=== PATIENT | female | born 1950 | race Caucasian/White ===

== ENCOUNTER 2017-03-11 10:16 | Outpatient (CLI) | payer OTHER ==
--- NOTE | 2017-03-11 20:24 | XRAY Preliminary Report ---
Exam: XR Hip w/Pelvis 2-3V LT IMPRESSION: 1. Mild osteitis pubis symphysis. 2. Normal left hip. [facility] SITE ID: [id number]
--- NOTE | 2017-03-11 20:41 | XRAY Report ---
EXAM: LEFT HIP AND PELVIS RADIOGRAPHY EXAM DATE: 03/11/2017 10:40 AM. HISTORY: Left hip pain for 3 months. No precipitating injury. COMPARISONS: None. TECHNIQUE: 1 view of the pelvis and 1 view of the hip. FINDINGS: Bones: Normal. No fracture or bone lesion. Joints: Normal hips bilaterally. Mild osseous pubis symphysis. Mild degenerative changes right sacroiliac joint consisting of mild uniform subcortical sclerosis on both sides. Soft Tissues: Normal. No soft tissue swelling. IMPRESSION: 1. Mild osteitis pubis symphysis. 2. Normal left hip. [facility] Referring Provider Line: [phone] SITE ID: [id number]
== END 2017-03-11 10:17 | disposition home or self-care (01) ==
LOC: DI 10:16
PROVIDERS: ATTEND Internal Medicine
DX: M86.8X8 Other osteomyelitis, other site (principal)

== ENCOUNTER 2017-04-15 11:07 | Outpatient (CLI) | payer OTHER ==
--- NOTE | 2017-04-15 12:26 | XRAY Report ---
THREE VIEW RIGHT SHOULDER: 04/15/2017 CLINICAL INDICATION: Pain. FINDINGS: AP, oblique, and scapular Y views of the right shoulder demonstrate mild osteoarthritis of the glenohumeral and acromioclavicular joints. There is no evidence of acute fracture or dislocation . No radiopaque foreign body is seen in the soft tissues. IMPRESSION: MILD OSTEOARTHRITIS. JOB #: [id number] EXT JOB #:[id number]
== END 2017-04-15 11:08 | disposition home or self-care (01) ==
LOC: DI 11:07
PROVIDERS: ATTEND Nurse Practitioner Primary Care
DX: M19.011 Primary osteoarthritis, right shoulder (principal)

== ENCOUNTER 2017-04-25 08:54 | Outpatient (CLI) | payer OTHER ==
[2017-04-25 12:36] LABS: BASOPHILS % (AUTO) 0.6 %; EOSINOPHILS # (AUTO) 0.3 10^3/uL (0.0-0.7); HCT - HEMATOCRIT 38.1 % (37.0-47.0); HGB - HEMOGLOBIN 12.9 g/dL (12.0-16.0); LYMPHOCYTES # (AUTO) 2.4 10^3/uL (1.5-3.5); LYMPHOCYTES % (AUTO) 34.9 %; MEAN CORPUSCULAR HEMOGLOBIN 30.3 pg (27.0-31.0); MEAN CORPUSCULAR HGB CONC 33.8 g/dL (32.0-36.0); MEAN CORPUSCULAR VOLUME 89.5 fL (81.0-99.0); MEAN PLATELET VOLUME 8.3 fL (7.9-10.8); MONOCYTES # (AUTO) 0.4 10^3/uL (0.0-1.0); MONOCYTES % (AUTO) 6.3 %; NEUTROPHILS # (AUTO) 3.8 10^3/uL (1.5-6.6); NEUTROPHILS % (AUTO) 54.2 %; RED BLOOD COUNT 4.25 10^6/uL (4.20-5.40); RED CELL DISTRIBUTION WIDTH 12.8 % (12.0-15.0)
[2017-04-25 12:57] LABS: ALBUMIN/GLOBULIN RATIO 1.3 (1.0-2.2); BILIRUBIN,TOTAL 0.8 mg/dL (0.2-1.0); CALCIUM 8.8 mg/dL (8.5-10.3); CREATININE 0.7 mg/dL (0.4-1.0); TOTAL PROTEIN 7.2 g/dL (6.7-8.2)
[2017-04-25 13:02] LABS: HEMOGLOBIN A1C 0.49 g/dL
== END 2017-04-25 08:55 | disposition home or self-care (01) ==
LOC: LAB.R 08:54
PROVIDERS: ATTEND Nurse Practitioner Primary Care
DX: Z00.00 Encounter for general adult medical examination without abnormal findings (principal); R73.9 Hyperglycemia, unspecified
CPT/HCPCS: 80053; 83036; 85025

== ENCOUNTER 2017-05-25 08:43 | Outpatient (CLI) | payer OTHER ==
--- NOTE | 2017-05-25 10:38 | DEXA Report ---
DEXA SCAN: 05/25/2017 CLINICAL INDICATION: Postmenopausal. TECHNIQUE: Dual energy x-ray absorptiometry (DXA) was performed on a [employer] system. Regions measured are the AP spine, femoral neck, and, if needed, forearm. COMPARISON: None. In accordance with the International Society for Clinical Densitometry (ISCD) guidelines, data from previous exams may be reanalyzed using current recommendations and techniques. This is done to allow a more accurate basis for comparison with the current study. FINDINGS: The data for the lumbar spine is as follows: REGION BMD (g/cm/cm) T-SCORE Z-SCORE L1 1.034 -0.8 0.7 L2 1.343 1.2 2.7 L3 1.400 1.7 3.2 L4 1.319 1.0 2.5 TOTAL 1.274 0.8 2.3 NOTE: All evaluable vertebrae are used for classification. The data for the hip is as follows: REGION BMD (g/cm/cm) T-SCORE Z-SCORE Neck 0.813 -1.6 -0.2 TOTAL 0.908 -0.8 0.4 NOTE: The femoral neck or total proximal femur, whichever is lowest, is used for classification. IMPRESSION: THE WHO CLASSIFICATION BASED ON THE INTERNATIONAL REFERENCE STANDARD IS OSTEOPENIA (REFERENCE LEFT FEMORAL NECK). THE FRACTURE RISK IS INCREASED. RECOMMENDATION: Patients with diagnosis of osteoporosis or osteopenia should have regular bone mineral density assessment. For those eligible for Medicare, routine testing is allowed once every 2 years. Testing frequency can be increased for patients who have rapidly progressing disease or for those who are receiving medical therapy to restore bone mass. COMMENT: World Health Organization (WHO) definitions for osteoporosis and osteopenia: NORMAL BMD: T-score at -1.0 or higher, fracture risk is low. OSTEOPENIA BMD: T-score between -1.0 and -2.5, fracture risk is increased. OSTEOPOROSIS BMD: T-score at -2.5 or lower, fracture risk high. National Osteoporosis Foundation recommends: 1. Obtain adequate dietary calcium (at least 1200 mg per day) and vitamin D (400 -800 international units per day). 2. Participate, as appropriate, in regular weightbearing and muscle- strengthening exercise. 3. Avoid tobacco use and reduce alcohol and caffeine intake. 4. For more detailed information see the website at www.NOF.org. MTDD
== END 2017-05-25 08:44 | disposition home or self-care (01) ==
LOC: DI 08:43
PROVIDERS: ATTEND Nurse Practitioner Primary Care
DX: Z78.0 Asymptomatic menopausal state (principal); Z00.00 Encounter for general adult medical examination without abnormal findings; M85.80 Other specified disorders of bone density and structure, unspecified site
CPT/HCPCS: 77080

== ENCOUNTER 2018-08-07 09:01 | Outpatient (CLI) | payer OTHER ==
[2018-08-07 22:56] LABS: BASOPHILS # (AUTO) 0.1 10^3/uL (0.0-0.1); BASOPHILS % (AUTO) 1.3 %; EOSINOPHILS # (AUTO) 0.2 10^3/uL (0.0-0.7); EOSINOPHILS % (AUTO) 3.2 %; HGB - HEMOGLOBIN 12.3 g/dL (12.0-16.0); LYMPHOCYTES # (AUTO) 2.5 10^3/uL (1.5-3.5); LYMPHOCYTES % (AUTO) 37.3 %; MEAN CORPUSCULAR HGB CONC 34.8 g/dL (32.0-36.0); MEAN PLATELET VOLUME 8.9 fL (7.9-10.8); MONOCYTES # (AUTO) 0.4 10^3/uL (0.0-1.0); MONOCYTES % (AUTO) 6.1 %; NEUTROPHILS # (AUTO) 3.5 10^3/uL (1.5-6.6); NEUTROPHILS % (AUTO) 52.1 %; PLT - PLATELET COUNT 265 10^3/uL (130-450); RED BLOOD COUNT 3.83 10^6/uL (4.20-5.40); RED CELL DISTRIBUTION WIDTH 13.1 % (12.0-15.0); WHITE BLOOD COUNT 6.8 x10^3/uL (4.8-10.8)
[2018-08-07 23:06] LABS: ALBUMIN 4.2 g/dL (3.2-5.5); ALBUMIN/GLOBULIN RATIO 1.7 (1.0-2.2); BILIRUBIN,TOTAL 0.8 mg/dL (0.2-1.0); CALCIUM 8.6 mg/dL (8.5-10.3); CREATININE 0.6 mg/dL (0.4-1.0); TOTAL PROTEIN 6.7 g/dL (6.7-8.2)
== END 2018-08-07 09:02 | disposition home or self-care (01) ==
LOC: LAB.R 09:01
PROVIDERS: ATTEND Nurse Practitioner Primary Care
DX: Z00.00 Encounter for general adult medical examination without abnormal findings (principal); R73.01 Impaired fasting glucose
CPT/HCPCS: 80053; 85025

== ENCOUNTER 2018-08-28 15:17 | Outpatient (CLI) | payer OTHER ==
[2018-08-28 18:10] LABS: BASOPHILS # (AUTO) 0.1 10^3/uL (0.0-0.1); BASOPHILS % (AUTO) 0.8 %; EOSINOPHILS # (AUTO) 0.2 10^3/uL (0.0-0.7); EOSINOPHILS % (AUTO) 2.7 %; HGB - HEMOGLOBIN 11.9 g/dL (12.0-16.0); LYMPHOCYTES # (AUTO) 2.5 10^3/uL (1.5-3.5); LYMPHOCYTES % (AUTO) 34.9 %; MEAN CORPUSCULAR HEMOGLOBIN 31.8 pg (27.0-31.0); MEAN CORPUSCULAR HGB CONC 34.6 g/dL (32.0-36.0); MEAN CORPUSCULAR VOLUME 91.9 fL (81.0-99.0); MEAN PLATELET VOLUME 8.5 fL (7.9-10.8); MEAN RETIC VALUE 109.6; MONOCYTES # (AUTO) 0.4 10^3/uL (0.0-1.0); MONOCYTES % (AUTO) 5.7 %; NEUTROPHILS % (AUTO) 55.9 %; PLT - PLATELET COUNT 273 10^3/uL (130-450); RED BLOOD COUNT 3.73 10^6/uL (4.20-5.40); RED CELL DISTRIBUTION WIDTH 12.5 % (12.0-15.0); WHITE BLOOD COUNT 7.2 x10^3/uL (4.8-10.8)
[2018-08-28 18:41] LABS: FERRITIN 40.2 ng/mL (11.0-306.8)
== END 2018-08-28 15:18 | disposition home or self-care (01) ==
LOC: LAB.R 15:17
PROVIDERS: ATTEND Nurse Practitioner Primary Care
DX: D64.9 Anemia, unspecified (principal)
CPT/HCPCS: 82607; 82728; 83010; 85025; 85044; 86880

== ENCOUNTER 2018-09-02 16:34 | Outpatient (CLI) | payer OTHER ==
--- NOTE | 2018-09-03 00:05 | Ultrasound Report ---
Reason: C/O PELVIC PAIN, ABDOMINAL BLOATING Procedure Date: 09/02/2018 Accession Number: [id number] / [id number] Procedure: US - Pelvic w/Transvaginal CPT Code: FULL RESULT: EXAM: PELVIC ULTRASOUND EXAM DATE: 09/02/2018 05:48 PM. CLINICAL HISTORY: C/O PELVIC PAIN, ABDOMINAL BLOATING. COMPARISON: None. TECHNIQUE: Realtime transabdominal pelvic scan performed to identify the uterus and adnexa and as an overview of other pelvic structures, followed by transvaginal scan to provide greater detail of the uterus and adnexa, with static image documentation. FINDINGS: Uterus: 8.1 x 3.9 x 2.6 cm, volume 43 cc. Anteverted position. Normal overall size and echotexture. Masses: There is a 0.7 x 0.6 x 0.5 cm posterior intramural leiomyoma. Endometrium: 4 mm. Trace fluid is present in the endometrial canal. Cervix: Unremarkable. Right Ovary: 3.1 x 2.1 x 1.3 cm, volume 4 cc. Normal echotexture. Left Ovary: 2.6 x 1.4 x 1.3 cm, volume 3 cc. Normal echotexture. Free Fluid: None. Other: None. IMPRESSION: 7 mm posterior intramural leiomyoma. [facility]
== END 2018-09-02 16:35 | disposition home or self-care (01) ==
LOC: DI 16:34
PROVIDERS: ATTEND Physician Assistant Surgical
DX: D25.1 Intramural leiomyoma of uterus (principal)
CPT/HCPCS: 76830; 76856

== ENCOUNTER 2018-10-02 08:00 | Outpatient (CLI) | payer OTHER ==
[2018-10-02 11:52] LABS: BASOPHILS % (AUTO) 0.7 %; EOSINOPHILS # (AUTO) 0.3 10^3/uL (0.0-0.7); HGB - HEMOGLOBIN 12.7 g/dL (12.0-16.0); LYMPHOCYTES # (AUTO) 2.6 10^3/uL (1.5-3.5); LYMPHOCYTES % (AUTO) 36.4 %; MEAN CORPUSCULAR HEMOGLOBIN 31.5 pg (27.0-31.0); MEAN CORPUSCULAR HGB CONC 34.5 g/dL (32.0-36.0); MEAN CORPUSCULAR VOLUME 91.3 fL (81.0-99.0); MEAN PLATELET VOLUME 8.2 fL (7.9-10.8); MONOCYTES # (AUTO) 0.5 10^3/uL (0.0-1.0); MONOCYTES % (AUTO) 6.8 %; NEUTROPHILS # (AUTO) 3.7 10^3/uL (1.5-6.6); NEUTROPHILS % (AUTO) 52.1 %; PLT - PLATELET COUNT 264 10^3/uL (130-450); RED BLOOD COUNT 4.03 10^6/uL (4.20-5.40); RED CELL DISTRIBUTION WIDTH 12.7 % (12.0-15.0); WHITE BLOOD COUNT 7.1 x10^3/uL (4.8-10.8)
[2018-10-02 12:05] LABS: BILIRUBIN,URINE NEGATIVE (NEGATIVE); GLUCOSE, URINE (UA) NEGATIVE (NEGATIVE); KETONES,URINE (UA) NEGATIVE (NEGATIVE); LEUKOCYTE ESTERASE, URINE NEGATIVE (NEGATIVE); NITRITE,URINE NEGATIVE (NEGATIVE); OCCULT BLOOD,URINE NEGATIVE (NEGATIVE); PH,URINE 5.5 PH (5.0-7.5); PROTEIN,URINE NEGATIVE (NEGATIVE); UROBILINOGEN,URINE 0.2 (NORMAL) E.U./dL (NORMAL)
[2018-10-02 12:07] LABS: CLARITY,URINE CLEAR (CLEAR)
[2018-10-02 12:10] LABS: BACTERIA,URINE None Seen /HPF (None Seen); RBC,URINE None Seen /HPF (0-5); SQUAMOUS EPITHELIAL CELL,UR NONE SEEN (<= Few)
== END 2018-10-02 23:59 | disposition home or self-care (01) ==
LOC: LAB.R 08:00
PROVIDERS: ATTEND Nurse Practitioner Primary Care
DX: D64.9 Anemia, unspecified (principal)
CPT/HCPCS: 81001; 85025; 87086

== ENCOUNTER 2019-02-15 21:35 | Emergency (ER) | payer MEDICARE, OTHER ==
--- NOTE | 2019-02-15 21:46 | ED Physician Documentation ---
History of Present Illness - Stated complaint Stated Complaint: FACE TINGLE/HEADACHE - Chief complaint Chief Complaint: Neuro - History obtained from History obtained from: Patient - History of Present Illness Timing: How many hours ago (1) Pain level max: 4 Pain level now: 1 Improved by: no apparent ameliorating factors, but has steadily improved since onset and nearly resolved by the time of this evaluation Worsened by: no apparent inciting nor exacerbating factors - Additonal information Additional information: while watching TV at home 1 hour ago, patient had sudden onset left-sided headache, predominantly retro-orbital, associated with "tingly" (per patient) paresthesias left infraorbit. Denies visual changes, denies h/o similar symptoms Review of Systems Constitutional: reports: Reviewed and negative Eyes: reports: Reviewed and negative Cardiac: reports: Reviewed and negative Respiratory: reports: Reviewed and negative GI: reports: Reviewed and negative Skin: reports: Reviewed and negative Musculoskeletal: reports: Reviewed and negative Neurologic: reports: Numbness (left facial paresthesias), Headache. denies: Generalized weakness, Focal weakness PD PAST MEDICAL HISTORY - Past Medical History Past Medical History: No - Past Surgical History Past Surgical History: Yes Ortho: Rotator cuff repair, Carpal Tunnel surgery - Present Medications Home Medications: Ambulatory Orders Medication Instructions Recorded Confirmed No Known Home Medications 06/09/16 06/09/16 - Allergies Allergies/Adverse Reactions: Allergies Allergy/AdvReac Type Severity Reaction Status Date / Time cefazolin sodium * Allergy Unknown Verified 06/09/16 15:43 [From Ancef] cephalexin monohydrate * Allergy Unknown Verified 06/09/16 15:43 [From Keflex] Sulfa (Sulfonamide Allergy Unknown Verified 06/09/16 15:43 Antibiotics) - Living Situation Living Arrangement: reports: At home - Social History Does the pt smoke?: No Smoking Status: Never smoker Does the pt drink ETOH?: Yes Does the pt have substance abuse?: No PD ED PE NORMAL - Vitals Vital signs reviewed: Yes - General General: Alert and oriented X 3, No acute distress, Well developed/nourished - HEENT HEENT: PERRL, EOMI, Moist mucous membranes - Neck Neck: Supple, no meningeal sign - Cardiac Cardiac: RRR, No murmur - Respiratory Respiratory: No respiratory distress, Clear bilaterally - Derm Derm: Normal color, Warm and dry, No rash - Neuro Neuro: Alert and oriented X 3, electric lineman 2-12 intact, No motor deficit, No sensory deficit, Normal speech Eye Opening: Spontaneous Motor: Obeys Commands Verbal: Oriented GCS Score: 15 Results - Vitals Vitals: Vital Signs - 24 hr 02/15/19 02/15/19 02/15/19 21:42 21:56 23:23 Temperature 36.6 C Heart Rate 80 95 80 Respiratory 16 17 20 Rate Blood Pressure 145/74 H 144/82 H 106/61 O2 Saturation 100 100 98 02/15/19 23:52 Temperature 36.5 C Heart Rate 82 Respiratory 16 Rate Blood Pressure 118/62 O2 Saturation 99 Oxygen O2 Source Room air - EKG (time done) No standard instances Rate: Rate (enter#) (79) Rhythm: NSR, LAE [place]: LAD Intervals: Normal CO QRS: LVH Ischemia: Normal ST segments, Q waves (V1-V3) - Labs Labs: Laboratory Tests 02/15/19 02/15/19 22:00 22:00 WBC 10.2 RBC 4.17 L Hgb 12.7 Hct 38.2 MCV 91.5 MCH 30.5 MCHC 33.4 RDW 12.7 Plt Count 292 MPV 8.1 Neut # (Auto) 5.0 Lymph # (Auto) 4.3 H [place] # (Auto) 0.6 Eos # (Auto) 0.3 Baso # (Auto) 0.0 Absolute Nucleated RBC 0.01 Nucleated RBC % 0.1 Sodium 140 Potassium 4.0 Chloride 100 L Carbon Dioxide 29 Anion Gap 11.0 BUN 20 Creatinine 0.9 Estimated GFR (MDRD) 62 L Glucose 103 H Calcium 9.0 Phosphorus 4.5 Magnesium 2.5 - Rads (name of study) CT head Radiology: Prelim report reviewed, See rad report PD MEDICAL DECISION MAKING - ED course Complexity details: reviewed results, re-evaluated patient, considered differential, d/w patient Departure - Departure Disposition: 01 Home, Self Care Clinical Impression: Headache, Paresthesia Condition: Good Instructions: ED Cephalgia Unspecified, ED Paraesthesias Follow-Up: Sachin Witt MD [Primary Care Provider] - Discharge Date/Time: 02/16/19 00:00 NIHSS - Level of Consciousness Level of consciousness: (0) Alert, Keenly responsive LOC Questions: (0) Answers both Q's correct LOC Commands: (0) Performs both correctly - Gaze Best Gaze: (0) Normal - Visual Visual: (0) No loss - Facial Palsy Facial Palsy: (0) Normal, symmetrical movement - Motor Arms (both separate) Motor Arm (right): (0) No drift Motor Arm (left): (0) No drift - Motor Legs (both separate) Motor Leg (right): (0) No drift Motor Leg (left): (0) No drift - Limb Ataxia Limb Ataxia: (0) Absent - Sensory Sensory: (0) Normal - Best Language Best Language: (0) No aphasia - Dysarthria Dysarthria: (0) Normal - Extinction and Inattention (formally neg Extinction and inattention: (0) No abnormality - Total Score/Results Total Score/Result: 0
[2019-02-15 22:16] LABS: BASOPHILS % (AUTO) 0.5 %; EOSINOPHILS # (AUTO) 0.3 10^3/uL (0.0-0.7); EOSINOPHILS % (AUTO) 2.6 %; HGB - HEMOGLOBIN 12.7 g/dL (12.0-16.0); LYMPHOCYTES # (AUTO) 4.3 10^3/uL (1.5-3.5); LYMPHOCYTES % (AUTO) 41.5 %; MEAN CORPUSCULAR HEMOGLOBIN 30.5 pg (27.0-31.0); MEAN CORPUSCULAR HGB CONC 33.4 g/dL (32.0-36.0); MEAN CORPUSCULAR VOLUME 91.5 fL (81.0-99.0); MEAN PLATELET VOLUME 8.1 fL (7.9-10.8); MONOCYTES # (AUTO) 0.6 10^3/uL (0.0-1.0); MONOCYTES % (AUTO) 6.1 %; NEUTROPHILS % (AUTO) 49.3 %; PLT - PLATELET COUNT 292 10^3/uL (130-450); RED BLOOD COUNT 4.17 10^6/uL (4.20-5.40); RED CELL DISTRIBUTION WIDTH 12.7 % (12.0-15.0); WHITE BLOOD COUNT 10.2 x10^3/uL (4.8-10.8)
[2019-02-15 22:29] LABS: CREATININE 0.9 mg/dL (0.4-1.0); MAGNESIUM 2.5 mg/dL (1.7-2.8); PHOSPHORUS 4.5 mg/dL (2.5-4.6)
--- NOTE | 2019-02-15 22:52 | CT Report ---
Reason: headache, paresthesias Procedure Date: 02/15/2019 Accession Number: [id number] / [id number] Procedure: CT - HEAD WO CPT Code: FULL RESULT: EXAM: CT HEAD EXAM DATE: 02/15/2019 10:29 PM. CLINICAL HISTORY: Headache and paresthesia COMPARISON: None. TECHNIQUE: Multiaxial CT images were obtained from the foramen magnum to the vertex. Reformats: Sagittal and coronal. IV contrast: None. In accordance with CT protocol optimization, one or more of the following dose reduction techniques were utilized for this exam: automated exposure control, adjustment of mA and/or KV based on patient size, or use of iterative reconstructive technique. FINDINGS: Parenchyma: No intraparenchymal hemorrhage. No evidence of mass, midline shift, or CT findings of infarction. Bates-white differentiation is distinct. Extraaxial Spaces: Normal for age. No subdural or epidural collections identified. Ventricles: Normal in size and position. Sinuses and Orbits: Imaged paranasal sinuses, orbits, and mastoids show no significant abnormality. Bones: No evidence of fracture or calvarial defect. Other: None. IMPRESSION: No acute intracranial process. [facility]
[2019-02-15 23:59] VITALS: BP 118/62
== END 2019-02-16 | disposition home or self-care (01) ==
LOC: ED 21:35
DX: R51 Headache (principal); R20.2 Paresthesia of skin; I51.7 Cardiomegaly
CPT/HCPCS: 36415; 70450; 80048; 83735; 84100; 85025; 93005; 99283; 99284

== ENCOUNTER 2019-05-28 12:52 | Outpatient (CLI) | payer MEDICARE, OTHER ==
--- NOTE | 2019-06-01 08:15 | Mammography Report ---
Reason: SCREENING MAMMO Procedure Date: 05/28/2019 Accession Number: [id number] / [id number] Procedure: DIPTI - Screening Mammo w/Kvng CPT Code: FULL RESULT: EXAM: Screening Mammo w/Kvng DATE: 05/28/2019 1:45 PM CLINICAL HISTORY: Screening encounter. History of late childbearing. TECHNIQUE: (B) - Bilateral CC, laterally exaggerated CC, MLO views were obtained. COMPARISON: None PARENCHYMAL PATTERN: (A) - The breast(s) demonstrate(s) scattered fibroglandular densities. FINDINGS: A right medial breast posterior isodense well-circumscribed nodule approximately 7 cm from the nipple at the 3:00 position demonstrates morphology including an apparent lucent central fatty hilum of a typically benign intramammary lymph node. A second right breast 4:00 partially obscured isodense lobulated nodule demonstrates an appearance most suggestive of a cluster of microcysts. In absence of a previous comparison, further clarification by right breast ultrasound in hopes of definitive characterization is recommended. In the left lateral breast at the 2:00 position resides a partially obscured isodense nodule which is well-circumscribed on 3-D image 23 and MLO, appearance most suggestive of a cyst. Again, further clarification by ultrasound in hopes of definitive characterization is recommended in absence of comparison imaging demonstrating stability. There are no suspicious masses, calcifications, or areas of distortion. IMPRESSION: Incomplete examination. BI-RADS category 0. RECOMMENDATION: (ADDUS) - Targeted ultrasound recommended. Right and left breast. The additional ultrasound examination could potentially be obviated if prior comparison imaging becomes available for review. BI-RADS CATEGORY: (0) - Incomplete Examination - need additional evaluation. STANDARD QUALIFYING STATEMENTS: 1. This examination was not reviewed with the aid of Computer-Aided Detection (CAD). 2. A negative or benign imaging report should not preclude biopsy if clinically suspicious findings are present. 3. Dense breasts may obscure an underlying neoplasm. 4. This examination was reviewed with the aid of 3D breast imaging (tomosynthesis).
== END 2019-05-28 12:53 | disposition home or self-care (01) ==
LOC: DI 12:52
DX: Z12.31 Encounter for screening mammogram for malignant neoplasm of breast (principal); R92.8 Other abnormal and inconclusive findings on diagnostic imaging of breast
CPT/HCPCS: 77063; 77067

== ENCOUNTER 2019-06-06 11:48 | Outpatient (CLI) | payer MEDICARE, OTHER ==
--- NOTE | 2019-06-06 13:53 | Ultrasound Report ---
Reason: ABNORMAL MAMMOGRAM Procedure Date: 06/06/2019 Accession Number: [id number] / [id number] Procedure: US - Breast Unilateral Limited CPT Code: FULL RESULT: EXAM: Breast Unilateral Limited DATE: 06/06/2019 1:23 PM CLINICAL HISTORY: Finding recalled from recent screening exams. TECHNIQUE: (R) - Right real-time ultrasound was performed by both the technologist and the radiologist. Capacity Planner images were obtained. COMPARISON: Mammography of 05/28/2019 through 09/17/2013. FINDINGS: Right breast: Targeted ultrasound in the posterior 3:00 breast demonstrates a 6 mm anechoic cyst corresponding to a chronic stable mammographic finding. Mammographic finding of concern is located at 4:00 2 cm from the nipple and corresponds to a 7 mm avascular clustered microcysts. No solid masses or suspicious findings. IMPRESSION: Benign findings. BI-RADS category 2. Results discussed with patient at time of exam. RECOMMENDATION: (ANNUAL) - Recommend routine annual screening mammography. BI-RADS CATEGORY: (2) - Benign Findings.
== END 2019-06-06 11:49 | disposition home or self-care (01) ==
LOC: DI 11:48
PROVIDERS: ATTEND Nurse Practitioner
DX: N60.11 Diffuse cystic mastopathy of right breast (principal)
CPT/HCPCS: 76642

== ENCOUNTER 2019-09-21 08:19 | Outpatient (CLI) | payer MEDICARE, OTHER ==
[2019-09-21 09:08] LABS: CHOLESTEROL 195 mg/dL; HDL CHOLESTEROL 64 mg/dL; LDL CHOLESTEROL,CALCULATED 109 mg/dL; LDL/HDL RATIO 1.7 (<4.4); VLDL CHOLESTEROL 22 mg/dL
== END 2019-09-21 08:20 | disposition home or self-care (01) ==
LOC: LAB 08:19
PROVIDERS: ATTEND Nurse Practitioner
DX: Z00.00 Encounter for general adult medical examination without abnormal findings (principal); E66.3 Overweight; R53.83 Other fatigue; R73.01 Impaired fasting glucose
CPT/HCPCS: 36415; 80061; 83721; 84443

== ENCOUNTER 2019-10-11 17:12 | Outpatient (CLI) | payer MEDICARE, OTHER ==
--- NOTE | 2019-10-16 03:35 | Ultrasound Report ---
Reason: CAROTID BRUIT Procedure Date: 10/11/2019 Accession Number: [id number] / [id number] Procedure: US - Carotid Doppler Complete CPT Code: Final Report FULL RESULT: EXAM: BILATERAL CAROTID AND VERTEBRAL ARTERY DUPLEX DOPPLER ULTRASOUND: EXAM DATE: 10/11/2019 09:19 PM CLINICAL HISTORY: Carotid bruit. COMPARISON: None. TECHNIQUE: Grayscale imaging, color Doppler, and duplex spectral Doppler were used to evaluate the carotid and vertebral arteries bilaterally. Static images were obtained. FINDINGS: Mild irregular calcified plaque is seen in the carotid bifurcations and internal carotid arteries bilaterally. Normal antegrade flow is present in bilateral vertebral arteries. VELOCITIES (cm/sec): Right CCA mid: PSV 83 cm/sec CCA dist: PSV 63 cm/sec ICA prox: PSV 67 cm/sec, EDV 27 cm/sec ICA mid: PSV 108 cm/sec, EDV 25 cm/sec ICA dist: PSV 67 cm/sec, EDV 25 cm/sec ECA: PSV 60 cm/sec Vert: PSV 72 cm/sec ICA/CCA: 1.3 Left CCA mid: PSV 78 cm/sec CCA dist: PSV 79 cm/sec ICA prox: PSV 79 cm/sec, EDV 27 cm/sec ICA mid: PSV 78 cm/sec, EDV 25 cm/sec ICA dist: PSV 119 cm/sec, EDV 36 cm/sec ECA: PSV 84 cm/sec Vert: PSV 78 cm/sec ICA/CCA: 1.5 ICA diameter stenosis: Right: <50% by velocity and <70% by NASCET criteria. Left: <50% by velocity and <70% by NASCET criteria. IMPRESSION: 1. Mild bilateral carotid artery plaquing. 2. In the right carotid artery there are no elevated carotid artery velocities to suggest hemodynamically significant stenosis. 3. In the left carotid artery there are no elevated carotid artery velocities to suggest hemodynamically significant stenosis. 4. Normal antegrade flow is present in bilateral vertebral arteries. General Recommendations: Stenosis =50% ICA - Follow-up ultrasound 6-12 months Stenosis <50% ICA - High Risk Patient with plaque - Follow-up ultrasound 1-2 years Normal Study but High Risk Patient - Follow-up ultrasound 3-5 years Management recommendations and diagnostic criteria are based on current IAC endorsed standards in Carotid Artery Stenosis: Grayscale and Doppler Ultrasound Diagnosis. Validated velocity measurements with angiographic measurements and velocity criteria are extrapolated from diameter data as defined by the Society of Radiologists in Ultrasound Consensus Conference Radiology 2003; 229;340-346. [facility]
== END 2019-10-11 17:13 | disposition home or self-care (01) ==
LOC: DI 17:12
PROVIDERS: ATTEND Nurse Practitioner
DX: R09.89 Other specified symptoms and signs involving the circulatory and respiratory systems (principal)
CPT/HCPCS: 93880

== ENCOUNTER 2019-10-11 17:19 | Outpatient (CLI) | payer MEDICARE, OTHER | END 2019-10-11 17:20 | disposition home or self-care (01) | LOC: DI 17:19 | PROVIDERS: ATTEND Nurse Practitioner | DX: Z53.9 Procedure and treatment not carried out, unspecified reason (principal) ==

== ENCOUNTER 2020-03-18 07:00 | Outpatient (CLI) | payer MEDICARE, OTHER | END 2020-03-18 23:59 | disposition home or self-care (01) | LOC: LAB.R 07:00 | PROVIDERS: ATTEND Nurse Practitioner Family | DX: R52 Pain, unspecified (principal); Z20.828 Contact with and (suspected) exposure to other viral communicable diseases | CPT/HCPCS: 81599 ==

== ENCOUNTER 2020-12-19 08:00 | Outpatient (CLI) | payer MEDICARE, OTHER | END 2020-12-19 23:59 | disposition home or self-care (01) | LOC: LAB.R 08:00 | PROVIDERS: ATTEND Physician Assistant Medical | DX: R30.0 Dysuria (principal) | CPT/HCPCS: 87086; 87181 ==

== ENCOUNTER 2021-01-12 08:00 | Outpatient (CLI) | payer MEDICARE, OTHER | END 2021-01-12 23:59 | disposition home or self-care (01) | LOC: LAB.S 08:00 | PROVIDERS: ATTEND Physician Assistant Medical | DX: N30.90 Cystitis, unspecified without hematuria (principal) | CPT/HCPCS: 87086 ==

== ENCOUNTER 2021-01-21 08:00 | Outpatient (CLI) | payer MEDICARE, OTHER | END 2021-01-21 23:59 | disposition home or self-care (01) | LOC: LAB.S 08:00 | PROVIDERS: ATTEND Physician Assistant Medical | DX: N30.90 Cystitis, unspecified without hematuria (principal); R30.0 Dysuria | CPT/HCPCS: 87086 ==

== ENCOUNTER 2021-02-02 11:36 | Outpatient (CLI) | payer MEDICARE, OTHER ==
--- NOTE | 2021-02-02 15:36 | DEXA Report ---
PROCEDURE: Dexa Spine and/or Hip INDICATIONS: POST MENOPAUSAL TECHNIQUE: Dual energy x-ray absorptiometry (DXA) was performed on a [employer] System. Regions measur ed are the AP Spine, femoral neck, and if needed forearm. COMPARISON: None. FINDINGS: Lumbar Spine: Bone Mineral Density 1.342 g/cm/cm,T score 1.3, compared to 0.8 Left Hip: Bone Mineral Density 0.879 g/cm/cm,T score -1.0, compared to 0.8 Left Femoral Neck: Bone Mineral Density 0.789 g/cm/cm, T score -1.8, Compared to -1.6 (T score greater or equal to -1.0: NORMAL) (T score from -1.1 to -2.4: OSTEOPENIA) (T score less than or equal to -2.5 to: OSTEOPOROSIS) Impression: Moderate osteopenia within the left femoral neck, progressive compared to prior exam. Bor derline osteopenia within the left hip, also progressive. Patients with diagnosis of osteoporosis or osteopenia should have regular bone mineral density assess ment. For those eligible for Medicare, routine testing is allowed once every 2 years. Testing frequ ency can be increased for patients who have rapidly progressing disease or for those who are receivin g medical therapy to restore bone mass. Reviewed by: Nakita Vigil MD on 02/02/2021 3:34 PM PDT Approved by: Nakita Vigil MD on 02/02/2021 3:34 PM PDT Station ID: [id number]
== END 2021-02-02 11:37 | disposition home or self-care (01) ==
LOC: DI 11:36
PROVIDERS: ATTEND Internal Medicine
DX: M85.89 Other specified disorders of bone density and structure, multiple sites (principal)

== ENCOUNTER 2021-04-13 08:46 | Outpatient (CLI) | payer MEDICARE, OTHER ==
--- NOTE | 2021-04-14 12:21 | Mammography Report ---
BILATERAL DIGITAL SCREENING MAMMOGRAM 3D/2D: 04/13/2021 CLINICAL: Routine screening. Comparison is made to exams dated: 06/06/2019 ultrasound, 05/28/2019 mammogram, and 04/27/2018 mammogra m - [facility]. The tissue of both breasts is predominantly fatty. No significant masses, calcifications, or other findings are seen in either breast. There has been no significant interval change. IMPRESSION: NEGATIVE There is no mammographic evidence of malignancy. A 1 year screening mammogram is recommended. This exam was interpreted at Station ID: [id number]. NOTE: For mammograms, a report in lay terms will be sent to the patient. Approximately 15% of breast malignancies will not be visualized mammographically. In the management of a palpable breast mass, a negative mammogram must not discourage biopsy of a clinically suspicious lesion. Electronically Signed By: Marty Trinidad M.D., jr/alyson:04/13/2021 09:24:43 ACR BI-RADS Category 1: Negative 3341F PARENCHYMAL PATTERN: (F) - The breast(s) demonstrate(s) diffuse fatty replacement. BI-RADS CATEGORY: (1) - 1 RECOMMENDATION: (ANNUAL) - Recommend routine annual screening mammography. [id number] 1 year screening LATERALITY: (B)
== END 2021-04-13 08:47 | disposition home or self-care (01) ==
LOC: DI 08:46
PROVIDERS: ATTEND Internal Medicine
DX: Z12.31 Encounter for screening mammogram for malignant neoplasm of breast (principal)

== ENCOUNTER 2021-06-08 07:45 | Outpatient (CLI) | payer MEDICARE, OTHER ==
[2021-06-08 14:47] LABS: BASOPHILS # (AUTO) 0.1 10^3/uL (0.0-0.1); BASOPHILS % (AUTO) 0.8 %; EOSINOPHILS # (AUTO) 0.2 10^3/uL (0.0-0.7); EOSINOPHILS % (AUTO) 3.4 %; HCT - HEMATOCRIT 41.6 % (37.0-47.0); HGB - HEMOGLOBIN 13.3 g/dL (12.0-16.0); LYMPHOCYTES # (AUTO) 2.8 10^3/uL (1.5-3.5); LYMPHOCYTES % (AUTO) 40.2 %; MEAN CORPUSCULAR HEMOGLOBIN 30.1 pg (27.0-31.0); MEAN CORPUSCULAR VOLUME 94.1 fL (81.0-99.0); MEAN PLATELET VOLUME 10.4 fL (7.9-10.8); MONOCYTES # (AUTO) 0.4 10^3/uL (0.0-1.0); MONOCYTES % (AUTO) 6.2 %; NEUTROPHILS # (AUTO) 3.5 10^3/uL (1.5-6.6); NEUTROPHILS % (AUTO) 49.4 %; PLT - PLATELET COUNT 293 10^3/uL (130-450); RED BLOOD COUNT 4.42 10^6/uL (4.20-5.40); RED CELL DISTRIBUTION WIDTH 12.3 % (12.0-15.0); WHITE BLOOD COUNT 7.1 x10^3/uL (4.8-10.8)
[2021-06-08 15:44] LABS: ALBUMIN 4.3 g/dL (3.2-5.5); ALBUMIN/GLOBULIN RATIO 1.5 (1.0-2.2); ALKALINE PHOSPHATASE 60 IU/L (42-121); ALT ALANINE AMINOTRANSFERASE 19 IU/L (10-60); AST ASPARTATE AMINOTRANSFERASE 17 IU/L (10-42); BILIRUBIN,TOTAL 0.8 mg/dL (0.2-1.0); BUN - BLOOD UREA NITROGEN 19 mg/dL (6-20); CALCIUM 8.9 mg/dL (8.5-10.3); CARBON DIOXIDE - CO2 29 mmol/L (21-32); CHLORIDE 97 mmol/L (101-111); CHOL/HDL RATIO 2.8 (<4.4); CHOLESTEROL 205 mg/dL; CREATININE 0.7 mg/dL (0.4-1.0); GFR - MDRD 82 (>89); GLUCOSE 97 mg/dL (70-100); HDL CHOLESTEROL 73 mg/dL; LDL CHOLESTEROL,CALCULATED 111 mg/dL; LDL/HDL RATIO 1.5 (<4.4); POTASSIUM 4.1 mmol/L (3.5-5.0); SODIUM 135 mmol/L (135-145); TOTAL PROTEIN 7.2 g/dL (6.7-8.2); TRIGLYCERIDES 103 mg/dL; VLDL CHOLESTEROL 21 mg/dL
== END 2021-06-08 07:46 | disposition home or self-care (01) ==
LOC: LAB.S 07:45
PROVIDERS: ATTEND Internal Medicine
DX: E55.9 Vitamin D deficiency, unspecified (principal); Z79.899 Other long term (current) drug therapy; Z13.220 Encounter for screening for lipoid disorders
CPT/HCPCS: 36415; 80053; 80061; 82306; 83721; 85025

== ENCOUNTER 2021-07-20 09:18 | Outpatient (CLI) | payer MEDICARE, OTHER ==
[2021-07-20 14:41] LABS: BASOPHILS % (AUTO) 0.5 %; EOSINOPHILS # (AUTO) 0.2 10^3/uL (0.0-0.7); EOSINOPHILS % (AUTO) 2.6 %; HCT - HEMATOCRIT 38.3 % (37.0-47.0); HGB - HEMOGLOBIN 12.3 g/dL (12.0-16.0); LYMPHOCYTES # (AUTO) 2.1 10^3/uL (1.5-3.5); LYMPHOCYTES % (AUTO) 36.2 %; MEAN CORPUSCULAR HEMOGLOBIN 30.4 pg (27.0-31.0); MEAN CORPUSCULAR HGB CONC 32.1 g/dL (32.0-36.0); MEAN CORPUSCULAR VOLUME 94.8 fL (81.0-99.0); MEAN PLATELET VOLUME 10.8 fL (7.9-10.8); MONOCYTES # (AUTO) 0.4 10^3/uL (0.0-1.0); MONOCYTES % (AUTO) 6.9 %; NEUTROPHILS # (AUTO) 3.1 10^3/uL (1.5-6.6); NEUTROPHILS % (AUTO) 53.6 %; PLT - PLATELET COUNT 260 10^3/uL (130-450); RED BLOOD COUNT 4.04 10^6/uL (4.20-5.40); RED CELL DISTRIBUTION WIDTH 12.4 % (12.0-15.0); WHITE BLOOD COUNT 5.8 x10^3/uL (4.8-10.8)
[2021-07-20 15:03] LABS: RHEUMATOID FACTOR NEGATIVE (Negative)
[2021-07-22 22:36] LABS: ANA SCREEN NEGATIVE (NEGATIVE)
== END 2021-07-20 09:19 | disposition home or self-care (01) ==
LOC: LAB.S 09:18
PROVIDERS: ATTEND Registered Nurse
DX: R60.0 Localized edema (principal)
CPT/HCPCS: 36415; 85025; 86038; 86140; 86430

== ENCOUNTER 2021-10-19 08:00 | Outpatient (CLI) | payer MEDICARE, OTHER ==
[2021-10-19 19:31] LABS: BILIRUBIN,URINE NEGATIVE (NEGATIVE); CLARITY,URINE HAZY (CLEAR); KETONES,URINE (UA) NEGATIVE (NEGATIVE); LEUKOCYTE ESTERASE, URINE SMALL (NEGATIVE); NITRITE,URINE NEGATIVE (NEGATIVE); OCCULT BLOOD,URINE MODERATE (NEGATIVE); PH,URINE 5.5 PH (5.0-7.5); PROTEIN,URINE NEGATIVE (NEGATIVE); UROBILINOGEN,URINE 0.2 (NORMAL) E.U./dL (NORMAL)
[2021-10-19 19:32] LABS: BACTERIA,URINE Many /HPF (None Seen); GLUCOSE, URINE (UA) NEGATIVE (NEGATIVE); SQUAMOUS EPITHELIAL CELL,UR FEW Squamous (<= Few)
== END 2021-10-19 23:59 ==
LOC: LAB.S 08:00
PROVIDERS: ATTEND Physician Assistant Medical
DX: R30.0 Dysuria (principal)
CPT/HCPCS: 81001

== ENCOUNTER 2022-10-21 08:00 | Outpatient (CLI) | payer MEDICARE, OTHER | END 2022-10-21 23:59 | disposition home or self-care (01) | LOC: LAB.N 08:00 | PROVIDERS: ATTEND Nurse Practitioner | DX: N39.0 Urinary tract infection, site not specified (principal) | CPT/HCPCS: 87086; 87181 ==

== ENCOUNTER 2022-12-09 14:40 | Outpatient (CLI) | payer MEDICARE, OTHER | END 2022-12-09 23:59 | disposition home or self-care (01) | LOC: LAB.N 14:40 | PROVIDERS: ATTEND Family Medicine | DX: N39.0 Urinary tract infection, site not specified (principal) | CPT/HCPCS: 87086; 87181 ==

== ENCOUNTER 2023-02-24 08:00 | Outpatient (CLI) | payer MEDICARE, OTHER | END 2023-02-24 23:59 | disposition home or self-care (01) | LOC: LAB.N 08:00 | PROVIDERS: ATTEND Family Medicine | DX: N39.0 Urinary tract infection, site not specified (principal) | CPT/HCPCS: 87086; 87181 ==

== ENCOUNTER 2023-03-07 08:00 | Outpatient (CLI) | payer MEDICARE, OTHER | END 2023-03-07 23:59 | disposition home or self-care (01) | LOC: LAB 08:00 | PROVIDERS: ATTEND Physician Assistant Medical | DX: R30.0 Dysuria (principal) | CPT/HCPCS: 87086 ==

== ENCOUNTER 2023-08-06 04:43 | Emergency (ER) | payer MEDICARE, OTHER ==
[2023-08-06] MEDS ORDERED: DEXAMETHASONE 10 MG/ML VIAL IVP STA (05:13)
[2023-08-06] MEDS ORDERED: methocarbamoL 500 MG TABLET PO STA (05:13)
[2023-08-06] MEDS ORDERED: KETOROLAC 15 MG/ML VIAL IVP STA (05:13)
[2023-08-06] MEDS ORDERED: LIDOCAINE PATCH 5% TOP STA (05:13)
[2023-08-06] MEDS ORDERED: ACETAMINOPHEN 325 MG TABLET PO STA (05:14)
--- NOTE | 2023-08-06 06:09 | ED Physician Documentation ---
PD HPI BACK PAIN - Stated complaint Stated Complaint: BACK PX - Chief complaint Chief Complaint: Back Pain - History obtained from History obtained from: Patient - Additional information Additional information: 73-year-old female presents for muscle spasm.Patient states that when she woke up yesterday morning she noticed that her back was tight like she had slept incorrectly. They gradually worsened throughout the day and this morning when she woke up it was intolerable. She took 400 mg of ibuprofen prior to arrival. Denies bowel or bladder incontinence, denies saddle anesthesia. She states that she has had muscle spasms similar to this in the past, but never so severe that she needed to come to the emergency department. Review of Systems Constitutional: denies: Fever, Chills GI: denies: Abdominal Pain, Nausea, Vomiting Musculoskeletal: reports: Back pain. denies: Neck pain, Extremity pain, Joint pain, Extremity swelling PD PAST MEDICAL HISTORY - Past Medical History Cardiovascular: None Respiratory: None Neuro: None Endocrine/Autoimmune: None GI: None EQUINE INTERN: None : None HEENT: None Psych: None Musculoskeletal: None Derm: None - Past Surgical History Past Surgical History: Yes General: Colonoscopy, EGD Ortho: Rotator cuff repair, Carpal Tunnel surgery - Present Medications Home Medications: Ambulatory Orders Medication Instructions Recorded Confirmed methocarbamoL [Robaxin] 500 mg PO Q6H #20 tablet 08/06/23 predniSONE [Deltasone] 40 mg PO DAILY 5 Days #10 tablet 08/06/23 - Allergies Allergies/Adverse Reactions: Allergies Allergy/AdvReac Type Severity Reaction Status Date / Time cefazolin sodium * Allergy Unknown Verified 06/09/16 15:43 [From Ancef] cephalexin monohydrate * Allergy Unknown Verified 06/09/16 15:43 [From Keflex] Sulfa (Sulfonamide Allergy Unknown Verified 06/09/16 15:43 Antibiotics) - Social History Does the pt smoke?: No Smoking Status: Never smoker Does the pt drink ETOH?: Yes Does the pt have substance abuse?: No - Immunizations Immunizations are current?: Yes - POLST Patient has POLST: No PD ED PE NORMAL - Vitals Vital signs reviewed: Yes - General General: Alert and oriented X 3, Well developed/nourished, Other (in pain) - Cardiac Cardiac: RRR, Strong equal pulses - Respiratory Respiratory: No respiratory distress, Clear bilaterally - Abdomen Abdomen: Soft, Non tender, Non distended - Back Back: Other (no midline tenderness. R sided paraspinal tenderness lower lumbar region) - Derm Derm: Normal color, Warm and dry, No rash - Extremities Extremities: No deformity, No tenderness to palpate, Normal ROM s pain, No edema - Neuro Neuro: Alert and oriented X 3, program therapist 2-12 intact, No motor deficit, Normal speech - Psych Psych: Normal mood, Normal affect Results - Vitals Vitals: Vital Signs - 24 hr 08/06/23 05:08 Temperature 36.9 C Heart Rate 80 Respiratory 18 Rate Blood Pressure 155/50 H O2 Saturation 99 Oxygen O2 Source Room air PD Medical Decision Making - ED course Complexity details: reviewed results, re-evaluated patient, considered differential, d/w patient, d/w family ED course: Uncomfortable but nontoxic-appearing patient presenting with lumbar back spasms. Position of comfort is hunched over leaning on her . No midline vertebral tenderness, no signs or symptoms of cauda equina. Will give pain medications and will reassess. No indication for advanced imaging at this time. Patient reports feeling significantly improved after medications, she is now resting comfortably in bed in a reclining position. She is comfortable going home at this time with primary care follow-up. Short course of muscle relaxer sent to pharmacy. We will give short prescription for additional steroids as well. PCP follow-up advised. Departure - Departure Disposition: Home, Self Care Clinical Impression: Back spasm Condition: Stable Instructions: Back Tension Relieve Prescriptions: predniSONE [Deltasone] 40 mg PO DAILY 5 Days #10 tablet methocarbamoL [Robaxin] 500 mg PO Q6H #20 tablet
[2023-08-06 06:48] VITALS: BP 121/55; O2SAT 100
== END 2023-08-06 06:53 | disposition home or self-care (01) ==
LOC: ED 04:43
DX: M62.830 Muscle spasm of back (principal)
CPT/HCPCS: 96374; 99283; A9270

== ENCOUNTER 2023-12-05 09:47 | Outpatient (CLI) | payer MEDICARE, OTHER ==
--- NOTE | 2023-12-07 09:30 | Mammography Report ---
BILATERAL DIGITAL SCREENING MAMMOGRAM 3D/2D: 12/05/2023 CLINICAL: Routine screening. Comparison is made to exams dated: 06/02/2022 mammogram - [facility], 04/13/2021 mammogram, 019 mammogram, and 04/27/2018 mammogram - [facility]. There are scattered areas of fibroglandular density in both breasts (category b / 25%-50% glandular t issue). There are multiple round and oval masses with circumscribed margins seen in both breasts. No other si gnificant masses, calcifications, or other findings are seen in either breast. There has been no sig nificant interval change. IMPRESSION: BENIGN There are multiple bilateral, round and oval benign appearing masses.There is no mammographic evidenc e of malignancy. A 1 year screening mammogram is recommended. Based on the Tyrer Cuzick model (a risk assessment model) the patient's lifetime risk is 4.4% and her 10 year risk is 3.6%. According to the ACR, ACS, and NCCN guidelines, an annual breast MRI exam vikram g with mammogram is recommended if the patient's lifetime risk is 20% or greater. This exam was interpreted at Station ID: [id number]. NOTE: For mammograms, a report in lay terms will be sent to the patient. Approximately 15% of breast malignancies will not be visualized mammographically. In the management of a palpable breast mass, a negative mammogram must not discourage biopsy of a clinically suspicious lesion. Electronically Signed By: Courtney Schwab M.D., PH.D eb/:12/06/2023 16:34:49 ACR BI-RADS Category 2: Benign Finding(s) 3342F PARENCHYMAL PATTERN: (A) - The breast(s) demonstrate(s) scattered fibroglandular densities. BI-RADS CATEGORY: (2) - 2 Mammogram [id number] 1 year screening LATERALITY: (B)
== END 2023-12-05 09:48 | disposition home or self-care (01) ==
LOC: DI 09:47
DX: Z12.31 Encounter for screening mammogram for malignant neoplasm of breast (principal); R92.323 Mammographic fibroglandular density, bilateral breasts